=== PATIENT | female | born 1970 | race Caucasian/White ===

== ENCOUNTER 2017-05-16 17:47 | Outpatient (CLI) | payer SELFPAY | END 2017-05-16 17:48 | disposition EMS.NT | LOC: EMS 17:47 | PROVIDERS: ATTEND Surgery | DX: R51 Headache (principal) ==

== ENCOUNTER 2017-05-17 03:19 | Outpatient (CLI) | payer SELFPAY | END 2017-05-17 03:20 | disposition critical access hospital (66) | LOC: EMS 03:19 | PROVIDERS: ATTEND Surgery | DX: R51 Headache (principal) | CPT/HCPCS: A0425; A0429 ==

== ENCOUNTER 2017-05-17 03:53 | Emergency (ER) | payer SELFPAY ==
[2017-05-17] MEDS ORDERED: SODIUM CHLORIDE 0.9% 1,000 ML IV ONE (04:12)
[2017-05-17] MEDS ORDERED: diphenhydrAMINE INJ 50 MG/ML VIAL IVP STA (04:12)
[2017-05-17] MEDS ORDERED: METOCLOPRAMIDE 10 MG/2 ML VIAL IVP STA (04:12)
--- NOTE | 2017-05-17 04:42 | ED Physician Documentation ---
History of Present Illness - Stated complaint Stated Complaint: HEADACHE - Chief complaint Chief Complaint: Neuro - History obtained from History obtained from: Patient (pt here by EMS for evaluation of a headache. she states that it was a sudden onset of a bilateral headache reaching is max intensity within seconds at 1600 yesterday. states that she has had headaches in the past but not like this. has some pain with light, no numbness or tingling in her arms or hands or legs. no fevers no trauma) Review of Systems Constitutional: denies: Fever, Chills Eyes: reports: Photophobia. denies: Loss of vision Ears: denies: Ear pain, Drainage/discharge, Tinnitus/ringing Nose: denies: Congestion, Epistaxis, Sinus pressure / pain Throat: denies: Sore throat Cardiac: denies: Chest pain / pressure, Palpitations Respiratory: denies: Dyspnea, Cough GI: denies: Abdominal Pain, Nausea, Vomiting, Constipation, Diarrhea : denies: Dysuria, Vaginal bleeding Skin: denies: Rash, Lesions, Laceration (s) Musculoskeletal: reports: Neck pain. denies: Back pain Neurologic: reports: Headache. denies: Generalized weakness, Focal weakness, Numbness, Difficulty speaking, Syncope, Confused, Altered mental status, Head injury, LOC PD PAST MEDICAL HISTORY - Past Medical History Past Medical History: Yes Cardiovascular: None Respiratory: None Neuro: Headache/migraine Endocrine/Autoimmune: None GI: None HOSPICE COMMUNITY LIAISON: None : None HEENT: None Psych: None Musculoskeletal: None Derm: None - Past Surgical History Past Surgical History: Yes /HOSPICE COMMUNITY LIAISON: section - Present Medications Home Medications: Ambulatory Orders Medication Instructions Recorded Confirmed No Known Home Medications [No 05/17/17 05/17/17 Known Home Medications] - Allergies Allergies/Adverse Reactions: Allergies Allergy/AdvReac Type Severity Reaction Status Date / Time No Known Drug Allergies Allergy Verified 05/17/17 04:03 - Social History Does the pt smoke?: Yes Smoking Status: Current every day smoker Does the pt drink ETOH?: No Does the pt have substance abuse?: No - Immunizations Immunizations are current?: Yes PD ED PE NORMAL - Vitals Vital signs reviewed: Yes - General General: Alert and oriented X 3, No acute distress, Well developed/nourished - HEENT HEENT: Atraumatic, PERRL, EOMI, Moist mucous membranes, Pharynx benign - Cardiac Cardiac: RRR, No murmur - Respiratory Respiratory: No respiratory distress, Clear bilaterally - Abdomen Abdomen: Normal bowel sounds, Soft - Back Back: No CVA TTP, No spinal TTP - Derm Derm: Normal color, Warm and dry, No rash - Extremities Extremities: No deformity, No tenderness to palpate, No calf tenderness / cord - Neuro Neuro: Alert and oriented X 3, 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 No: Confused, Weakness, Abnormal sensation, Nystagmus, Aphasia, Dysarthria Results - Vitals Vitals: Vital Signs - 24 hr 05/17/17 05/17/17 05/17/17 03:59 04:37 05:05 Temperature 36.6 C Heart Rate 72 78 80 Respiratory 20 15 15 Rate Blood Pressure 145/101 H 150/94 H 154/99 H O2 Saturation 100 100 100 Oxygen O2 Source Room air - Labs Labs: Laboratory Tests 05/17/17 05/17/17 05/17/17 05:00 05:00 05:00 WBC 9.3 RBC 4.60 Hgb 10.6 L Hct 34.3 L MCV 74.6 L MCH 23.1 L MCHC 30.9 L RDW 17.8 H Plt Count 282 MPV 7.6 L Neut # 7.6 H Lymph # 0.9 L [place] # 0.7 Eos # 0.0 Baso # 0.0 Absolute Nucleated RBC 0.01 Nucleated RBC % 0.1 PT 12.1 INR 1.1 APTT 25.5 Sodium 140 Potassium 3.5 Chloride 108 Carbon Dioxide 23 Anion Gap 9.0 BUN 17 Creatinine 0.6 Estimated GFR (MDRD) 108 Glucose 140 H Calcium 8.0 L Total Bilirubin 0.5 AST 23 ALT 17 Alkaline Phosphatase 67 Total Protein 6.6 L Albumin 3.6 Globulin 3.0 Albumin/Globulin Ratio 1.2 Lipase 22 - Rads (name of study) Head CT Radiology: Final report received (subarachnoid bleed), EMP read contemporaneously PD MEDICAL DECISION MAKING - ED course Complexity details: reviewed results, re-evaluated patient, considered differential, d/w patient, d/w family, d/w dairy consultant ED course: pt with thunderclap headache and subarachnoid hemorrhage on the CT. SBP in the 150's. after discussion with accepting provider Dr Holman at [facility], the decison was made to provide pain control to see if that doesn't improve the BP before giving BP lowering medications. Pt has normal neuro exam. Discussed condition with the patient and the family at bedside. Discussed the need for transfer. pt expressed understanding. - Critical Care Time(min): 35 Time Includes: Direct patient care, Document care, Coordinate care, Medical consult Data interpretation: Labs Departure - Departure Disposition: 02 Transfer Acute Care Hosp Clinical Impression: Subarachnoid hemorrhage Condition: Stable
--- NOTE | 2017-05-17 04:50 | CT Report ---
EXAM: CT HEAD EXAM DATE: 05/17/2017 04:30 AM. CLINICAL HISTORY: Headache. COMPARISON: None. TECHNIQUE: Multiaxial CT images were obtained from the foramen magnum to the vertex. Reformats: Coron al. IV contrast: None. In accordance with CT protocol optimization, one or more of the following dose reduction techniques w ere utilized for this exam: automated exposure control, adjustment of mA and/or KV based on patient s ize, or use of iterative reconstructive technique. FINDINGS: Subarachnoid blood products are present within the suprasellar cistern, both sylvian fissures, cister n of the lamina terminalis and anterior interhemispheric fissure. Smaller amounts of blood products a re seen over both frontal convexities. 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 No intra ventricular blood density is present. No intraparenchymal hematoma. No extracerebral fluid collection or evidence of infarct. Skull base, visualized paranasal sinuses, mastoids and calvarium are unremarkable. IMPRESSION: Subarachnoid blood products are present within the suprasellar cistern, both sylvian fissures, cister n of the lamina terminalis and anterior interhemispheric fissure. Smaller amounts of blood products a re seen over both frontal convexities. 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 RADIA The above critical findings were discussed with Dr. Drew by Dr. Juancarlos Castañeda at 04:46 hrs on . Referring Provider Line: [phone] SITE ID: [id number]
[2017-05-17 05:05] VITALS: BP 154/99
[2017-05-17] MEDS ORDERED: HYDROmorphone 1 MG/ML SYRINGE IVP STA (05:07)
[2017-05-17 05:15] LABS: INR 1.1 (0.8-1.2); PT - PROTHROMBIN TIME 12.1 secs (9.9-12.6)
[2017-05-17 05:18] LABS: BASOPHILS % (AUTO) 0.5 %; EOSINOPHILS % (AUTO) 0.4 %; HGB - HEMOGLOBIN 10.6 g/dL (12.0-16.0); LYMPHOCYTES # (AUTO) 0.9 10^3/uL (1.5-3.5); LYMPHOCYTES % (AUTO) 9.6 %; MEAN CORPUSCULAR HEMOGLOBIN 23.1 pg (27.0-31.0); MEAN CORPUSCULAR HGB CONC 30.9 g/dL (32.0-36.0); MEAN CORPUSCULAR VOLUME 74.6 fL (81.0-99.0); MEAN PLATELET VOLUME 7.6 fL (7.9-10.8); MONOCYTES # (AUTO) 0.7 10^3/uL (0.0-1.0); MONOCYTES % (AUTO) 7.6 %; NEUTROPHILS # (AUTO) 7.6 10^3/uL (1.5-6.6); NEUTROPHILS % (AUTO) 81.9 %; PLT - PLATELET COUNT 282 10^3/uL (130-450); RED CELL DISTRIBUTION WIDTH 17.8 % (12.0-15.0); WHITE BLOOD COUNT 9.3 x10^3/uL (4.8-10.8)
[2017-05-17 05:22] LABS: ALBUMIN 3.6 g/dL (3.2-5.5); ALBUMIN/GLOBULIN RATIO 1.2 (1.0-2.2); BILIRUBIN,TOTAL 0.5 mg/dL (0.2-1.0); CREATININE 0.6 mg/dL (0.4-1.0); TOTAL PROTEIN 6.6 g/dL (6.7-8.2)
== END 2017-05-17 05:29 | disposition short-term general hospital (02) ==
LOC: EDUNIT# → ED 03:53
DX: I60.9 Nontraumatic subarachnoid hemorrhage, unspecified (principal); F17.200 Nicotine dependence, unspecified, uncomplicated
CPT/HCPCS: 36415; 70450; 80053; 83690; 85025; 85610; 85730; 96374; 96375; 99284; 99291; J1170

== ENCOUNTER 2017-05-17 05:30 | Outpatient (CLI) | payer SELFPAY | END 2017-05-17 05:31 | disposition short-term general hospital (02) | LOC: EMS 05:30 | PROVIDERS: ATTEND Surgery | DX: I60.9 Nontraumatic subarachnoid hemorrhage, unspecified (principal) | CPT/HCPCS: A0425; A0427 ==